=== PATIENT | male | born 1995 | race American Indian/Alaskan Native ===

== ENCOUNTER 2018-08-02 21:50 | Emergency (ER) | payer OTHER ==
[2018-08-03] MEDS ORDERED: IBUPROFEN PO ONE (00:55)
--- NOTE | 2018-08-03 00:56 | Emergency Department Report ---
ED ENT HPI - General Chief complaint: Dental/Oral Stated complaint: TOOTHACHE Time Seen by Provider: 08/03/18 00:52 Source: patient Mode of arrival: Ambulatory Limitations: No Limitations - History of Present Illness Initial comments: 22-year-old -[place] male presents to the emergency room for right side toothache and swelling for 3 days. Patient has taken nothing for pain. Patient denies any trauma. He has no known drug allergies currently takes no medications on a daily basis. Patient reports that he has been dental appointment tomorrow. MD complaint: tooth pain Onset/Timin -: days(s) Location: tooth # (29) Severity scale (0 -10): 10 Quality: aching, sharp Consistency: constant Improves with: none Context- Dental: history of dental caries Associated Symptoms: gum swelling, toothache - Related Data Previous Rx's Medication Instructions Recorded Last Taken Type Amoxicillin [Amoxicillin TAB] 875 mg PO BID #20 tablet 08/03/18 Unknown Rx Naproxen [Naprosyn] 500 mg PO BID PRN #20 tablet 08/03/18 Unknown Rx Allergies Allergy/AdvReac Type Severity Reaction Status Date / Time No Known Allergies Allergy Unverified 08/03/18 00:54 ED Dental HPI - General Chief complaint: Dental/Oral Stated complaint: TOOTHACHE Time Seen by Provider: 08/03/18 00:52 Source: patient Mode of arrival: Ambulatory Limitations: No Limitations - Related Data Previous Rx's Medication Instructions Recorded Last Taken Type Amoxicillin [Amoxicillin TAB] 875 mg PO BID #20 tablet 08/03/18 Unknown Rx Naproxen [Naprosyn] 500 mg PO BID PRN #20 tablet 08/03/18 Unknown Rx Allergies Allergy/AdvReac Type Severity Reaction Status Date / Time No Known Allergies Allergy Unverified 08/03/18 00:54 ED Review of Systems ROS: Stated complaint: TOOTHACHE Other details as noted in HPI Comment: All other systems reviewed and negative ENT: dental pain ED Past Medical Hx - Past Medical History Previous Medical History?: No - Surgical History Past Surgical History?: No Additional Surgical History: Plastic Surgery:facial-2007 - Social History Smoking Status: Current Every Day Smoker Substance Use Type: Marijuana - Medications Home Medications: Home Medications Medication Instructions Recorded Confirmed Last Taken Type Amoxicillin [Amoxicillin TAB] 875 mg PO BID #20 tablet 08/03/18 Unknown Rx Naproxen [Naprosyn] 500 mg PO BID PRN #20 tablet 08/03/18 Unknown Rx ED Physical Exam - General Limitations: No Limitations General appearance: alert, in no apparent distress - Head Head exam: Present: atraumatic, normocephalic - Expanded ENT Exam Expanded Teeth exam: Present: dental tenderness # (29), gingival enlargement Throat exam: Positive: tonsillomegaly. Negative: tonsillar erythema, tonsillar exudate - Neck Neck exam: Present: normal inspection, full ROM - Neurological Exam Neurological exam: Present: alert, oriented X3 - Psychiatric Psychiatric exam: Present: normal affect, normal mood - Skin Skin exam: Present: warm, dry, intact, normal color. Absent: rash ED Course Vital Signs 08/02/18 21:56 Temperature 99.0 F Pulse Rate 96 H Respiratory 18 Rate Blood Pressure 134/83 O2 Sat by Pulse 96 Oximetry ED Medical Decision Making - Medical Decision Making 21-year-old -[place] male comes in for toothache and jaw swelling for 3 days. Patient will be given ibuprofen 600 mg now and discharged home with naproxen 500 mg twice a day and amoxicillin 875 mg twice a day for 10 days. Critical care attestation.: If time is entered above; I have spent that time in minutes in the direct care of this critically ill patient, excluding procedure time. ED Disposition Clinical Impression: Dental abscess Disposition: DC-01 TO HOME OR SELFCARE Is pt being admited?: No Does the pt Need Aspirin: No Condition: Stable Instructions: Dental Abscess (ED) Additional Instructions: Take antibiotics as prescribed and pain medication as needed. Follow-up with the dentist. Prescriptions: Amoxicillin [Amoxicillin TAB] 875 mg PO BID #20 tablet Naproxen [Naprosyn] 500 mg PO BID PRN #20 tablet PRN Reason: Pain , Severe (7-10) Referrals: NAKUL LANDRY MD [Primary Care Provider] - 3-5 Days Forms: Work/School Release Form(ED)
[2018-08-03 07:40] VITALS: BP 130/76
== END 2018-08-03 01:25 | disposition home or self-care (01) ==
LOC: ED 21:50
DX: K04.7 Periapical abscess without sinus (principal); F17.200 Nicotine dependence, unspecified, uncomplicated
CPT/HCPCS: 99282

== ENCOUNTER 2018-08-19 15:36 | Emergency (ER) | payer SELFPAY ==
[2018-08-19 17:25] VITALS: BP 112/78
--- NOTE | 2018-08-19 17:25 | Emergency Department Report ---
ED Laceration HPI - HPI Chief Complaint: Wound/Laceration Stated Complaint: RT ARM LAC Occurred When: Today Location: Upper Extremity (right forearm) Severity: mild Tetanus Status: Up to Date Laceration Symptoms: Yes Pain Other History: 22 y/o male comes in for right forearm laceration that he sustain while taking the trash out and a piece of glass cut him. Patient reports last Teatnus 6 months ago. ED Review of Systems ROS: Stated complaint: RT ARM LAC Other details as noted in HPI Comment: All other systems reviewed and negative Skin: other (cut on right arm. ) ED Past Medical Hx - Past Medical History Previous Medical History?: No - Surgical History Additional Surgical History: Plastic Surgery:facial-2006 - Social History Smoking Status: Current Every Day Smoker Substance Use Type: Marijuana - Medications Home Medications: Home Medications Medication Instructions Recorded Confirmed Last Taken Type Amoxicillin [Amoxicillin TAB] 875 mg PO BID #20 tablet 08/03/18 Unknown Rx Naproxen [Naprosyn] 500 mg PO BID PRN #20 tablet 08/03/18 Unknown Rx Laceration Physical Exam - Exam General: Vital signs noted. No distress. Alert and acting appropriately. Wound Length (cm): 3 Laceration Location: Upper Extremity Laceration Exam: Yes Normal Distal CMS, No Foreign Body, No Exposed Tendon, Vessel, or Nerve, No Tendon Injury - Laceration /Wound Repair Right Arm Wound Location: upper extremity Wound Length (cm): 2 Wound's Depth, Shape: superficial, linear Wound Explored: no foreign body removed Irrigated w/ Saline (ccs): 30 Betadine Prep?: Yes Wound Repaired With: Steri-strips, Dermabond Sterile Dressing Applied?: Yes Progress: tolerated well. ED Medical Decision Making - Medical Decision Making 22 y/o male with laceration to right forearm. Repaired with adhesive glue and steristrips. Critical care attestation.: If time is entered above; I have spent that time in minutes in the direct care of this critically ill patient, excluding procedure time. ED Disposition Clinical Impression: Laceration of right forearm Qualifiers: Encounter type: initial encounter Qualified Code(s): S51.811A - Laceration without foreign body of right forearm, initial encounter Disposition: TO HOME OR SELFCARE Is pt being admited?: No Does the pt Need Aspirin: No Condition: Stable Instructions: Laceration (ED), Skin Adhesive Care (ED) Additional Instructions: Keep wound clean and dry. Referrals: NAKUL LANDRY MD [Primary Care Provider] - 3-5 Days Forms: Work/School Release Form(ED)
== END 2018-08-19 17:37 | disposition home or self-care (01) ==
LOC: ED 15:36
DX: S51.811A Laceration without foreign body of right forearm, initial encounter (principal); F17.200 Nicotine dependence, unspecified, uncomplicated; F12.10 Cannabis abuse, uncomplicated; W25.XXXA Contact with sharp glass, initial encounter; Y93.89 Activity, other specified; Y92.89 Other specified places as the place of occurrence of the external cause; Y99.8 Other external cause status